=== PATIENT | female | born 1965 | race Caucasian/White ===

== ENCOUNTER 2016-10-12 15:01 | Emergency (ER) | payer OTHER ==
[2016-10-12] MEDS ORDERED: IPRATROPIUM/ALBUTEROL 0.5/3 MG 3 ML AMPUL.NEB INHALATION ONE (15:31)
--- NOTE | 2016-10-12 15:43 | ER NURSING DOCUMENTATION ---
Nurse's Notes [facility] Name:Elliott Chadwick Age:51 yrs Sex:Female :1965 Arrival Date:10/12/2016 Time:15:01 Bed1 Private MD:No PCP, Identified Diagnosis:Bronchitis Acute Presentation: 10/12 15:09 Presenting complaint: Patient states: pt states she has had a cough so bad she can't st sleep and some chills. This all started 5 days ago. Transition of care: Other arrived from Main today. 15:09 Acuity: ISSAC 4 st 15:09 Method Of Arrival: Private Vehicle st Triage Assessment: 15:17 General: Appears in no apparent distress, Behavior is cooperative. Pain: Denies pain. st Cardiovascular: No deficits noted. Murmur normal for pt.. 15:21 Respiratory: Airway is patent Respiratory effort is even, unlabored, Respiratory st pattern is regular, symmetrical, Breath sounds are clear bilaterally. Reports cough that is productive, congestion. Historical: - Allergies: Sulfa (Sulfonamide Antibiotics); - Social history: Smoking status: Patient states was never smoker of tobacco. Screenin:21 Infectious Disease Risk None. Abuse screen: Denies threats or abuse. Denies injuries st from another. Nutritional screening: No deficits noted. Vital Signs: 15:13 BP 143 / 95; Pulse 94; Resp 19; Temp 98.0(O); Pulse Ox 95% on R/A; Weight 82.55 kg; rh Height 5 ft. 3 in. (160.02 cm); Pain 0/10; 15:13 Body Mass Index 32.24 (82.55 kg, 160.02 cm) rh ED Course: 15:09 Patient arrived in ED. ds 15:09 No PCP, Identified is Private Physician. ds 15:09 Michelle Glover, RN is Primary Nurse. st 15:16 Adal Luz MD is Attending Physician. be 15:[address] 15:22 Valuables Remains with patient. st Administered Medications: 15:18 Drug: DuoNeb (Albuterol 2.5 mg, Atrovent 0.5 mg); 3 ml; Route: Nebulizer; rh 15:24 Follow up: Response: No adverse reaction st Outcome: 15:35 Discharge ordered by MD. be 15:42 Discharged to home ambulatory. st 15:42 Condition: improved 15:42 Discharge instructions given to patient, Instructed on discharge instructions, follow up and referral plans. medication usage, Prescriptions given X 2. 15:43 Patient left the ED. 10/13 11:25 Discharge F/U Call: Unable to reach: no answer Signatures: Michelle Glover RN RN st Srot, Taylor, Reg Reg Adal Lee MD MD be Hofsess, Rachel
--- NOTE | 2016-10-12 15:43 | ER PHYSICIAN DOCUMENTATION ---
Physician Documentation [facility] Name:Elliott Chadwick Age:51 yrs Sex:Female :1965 Arrival Date:10/12/2016 Time:15:01 Bed1 Private MD:No PCP, Identified ED Adal Peep Disposition: 10/12/16 15:35 Discharged to Home/Self Care. Impression: Bronchitis Acute. - Condition is Good. - Discharge Instructions: BRONCHITIS, Abx Tx (Adult). - Prescriptions for Levaquin 500 mg Oral Tablet - take 1 tablet by ORAL route once daily for 7 days; 7 tablet. Tussionex Pennkinetic ER 8- 10 mg/5 mL Oral - take 5 milliliter by ORAL route every 12 hours As needed PRN cough.; 60 milliliter. - Medical Reconciliation form form. - Follow up: Private Physician; When: As needed; Reason: Worsening of condition, Continuance of care. - Problem is new. - Symptoms are unchanged. HPI: 10/12 15:37 This 51 yrs old Female presents to ER via Private Vehicle with complaints of be Cold Symptoms. 15:37 The patient or guardian reports cough, that is constant, with productive sputum, that be is green. Onset: The symptom(s)/episode began/occurred 5 day(s) ago. Severity of symptoms: At their worst the symptoms were moderate, earlier today, in the emergency department the symptoms are unchanged. Modifying factors: The symptoms are alleviated by nothing, the symptoms are aggravated by altitude arrival today. Associated signs and symptoms: Pertinent positives: fever, rhinorrhea, sore throat, Pertinent negatives: diarrhea, ear ache, vomiting. Historical: - Allergies: Sulfa (Sulfonamide Antibiotics); - Social history: Smoking status: Patient states was never smoker of tobacco. ROS: 15:39 ENT: Positive for nasal discharge, rhinorrhea, sinus congestion, sore throat, Negative be for injury or acute deformity, difficulty swallowing, difficulty handling secretions. 15:39 Respiratory: Positive for cough, with green sputum, Negative for dyspnea on exertion, hemoptysis, orthopnea, pleurisy, shortness of breath, wheezing. 15:39 All other systems are negative. Exam: 15:40 ENT: TM's: no acute changes, Nose: Nasal mucosa: edematous, erythematous, nasal be drainage, that is moderate, and is seen coming from both nares, Posterior pharynx: erythema, that is mild. 15:40 Respiratory: Respirations: normal, Breath sounds: no acute changes, throughout. 15:41 Constitutional: This is a well developed, well nourished patient who is awake, alert, be and in no acute distress. Head/Face: Normocephalic, atraumatic. Chest/axilla: Normal chest wall appearance and motion. Nontender with no deformity. No lesions are appreciated. Cardiovascular: Regular rate and rhythm with a normal S1 and S2. No gallops, murmurs, or rubs. Normal PMI, no JVD. No pulse deficits. Abdomen/GI: Soft, non-tender, with normal bowel sounds. No distension or tympany. No guarding or rebound. No evidence of tenderness throughout. 15:41 MS/ Extremity: Pulses equal, no cyanosis. Neurovascular intact. Full, normal range be of motion. Vital Signs: 15:13 BP 143 / 95; Pulse 94; Resp 19; Temp 98.0(O); Pulse Ox 95% on R/A; Weight 82.55 kg; rh Height 5 ft. 3 in. (160.02 cm); Pain 0/10; 15:13 Body Mass Index 32.24 (82.55 kg, 160.02 cm) rh MDM: 15:16 Patient medically screened. be 15:42 Differential Diagnosis: Bronchitis Sinusitis Pharyngitis. Data reviewed: vital signs, be nurses notes, trial of bronchodilators w/o improvement, and as a result, I will discharge patient, levofloxacin and tussionex.. Dispensed Medications: 15:18 Drug: DuoNeb (Albuterol 2.5 mg, Atrovent 0.5 mg); 3 ml; Route: Nebulizer; rh 15:24 Follow up: Response: No adverse reaction st Signatures: Michelle Glover, Adal Chavez RN, MD MD be Hofsess, Rachel
== END 2016-10-12 15:43 | disposition home or self-care (01) ==
LOC: ER 15:01
DX: J20.9 Acute bronchitis, unspecified (principal)
CPT/HCPCS: 94640; 99284; J7620